=== PATIENT | female | born 1950 | race African-American/Black ===

== ENCOUNTER 2017-09-12 21:20 | Observation (INO) ==
[2017-09-12] MEDS ORDERED: 0.9 % Sodium Chloride 1,000 ML IVC ONE (21:37)
[2017-09-12] MEDS ORDERED: Ondansetron 4 MG/2 ML VIAL IVP ONE (21:37)
[2017-09-12] MEDS ORDERED: *HR* FentaNYL (PF) 100 MCG/2 ML VIAL IVP ONE (22:23)
--- NOTE | 2017-09-12 22:26 | Emergency Department Note ---
Disposition Clinical Impression: Diverticulitis Disposition: Admitted As Inpatient Condition: Fair Abdominal Pain HPI - General Chief Complaint: ED Abdominal Pain Stated Complaint: abdominal pain, n/v Time Seen by Provider: 09/12/17 21:36 Source: patient Mode of arrival: ambulatory Limitations: no limitations Nursing Notes Reviewed: Yes Vital Signs Reviewed: Yes - History of Present Illness HPI Narrative: 67-year-old female presents for evaluation of abdominal pain. Patient had left lower quadrant abdominal pain that started today. Denies any radiation of symptoms. No history of this in the past. Patient reports some nausea no vomiting. Patient had fever and chills. Patient denies any diarrhea or constipation. Patient denies any urinary symptoms. A shunt has had her gallbladder removed. Patient did not take any pain medication prior to ED arrival. Pain Scale: 9 - Related Data Home Medications Medication Instructions Recorded Confirmed Aspirin [Lo-Dose Aspirin EC] 81 mg PO DAILY 09/12/17 09/13/17 Gabapentin [Neurontin] 300 mg PO HS 09/12/17 09/13/17 Metformin HCl [Glucophage] 1,000 mg PO BID 09/12/17 09/12/17 Pioglitazone [Actos] 30 mg PO 0800 09/12/17 09/13/17 Allergies Allergy/AdvReac Type Severity Reaction Status Date / Time codeine Allergy See Verified 09/12/17 21:30 Comments All systems ED: reviewed and negative except as stated. Constitutional: Reports: fever, chills Cardiovascular: Denies: chest pain Respiratory: Denies: cough, dyspnea Gastrointestinal: Reports: abdominal pain, nausea. Denies: vomiting, diarrhea, constipation Abdominal Pain PMH - Past Medical History Medical history: Reports: diabetes Female Surgical History: Reports: cholecystectomy - Social History Smoking status: Never smoker Alcohol use: Reports: none Drug use: Reports: none Physical Exam - General Limitations: no limitations General appearance: alert, in no apparent distress - Head Head exam: atraumatic, normocephalic - Eye Eye exam: Present: normal appearance, PERRL, EOMI - ENT ENT exam: normal exam - Neck Neck exam: Present: normal inspection, trachea midline - Chest Chest inspection: Present: normal inspection, symmetric chest wall rise - Respiratory Respiratory exam: Present: prolonged expiratory phase, other (Diffusely diminished breath sounds throughout) - Cardiovascular Cardiovascular exam: Present: regular rate, normal rhythm. Absent: systolic murmur - Abdominal Exam Abdominal exam: Present: soft, tenderness (Tenderness to the left lower quadrant without rebound or guarding.) - Extremities Exam Extremities exam: Present: normal inspection. Absent: pedal edema - Back Exam Back exam: Present: normal inspection - Neurological Exam Neurological exam: Present: alert, oriented X3 Course Course Narrative: Patient had CT imaging of the pelvis, basic labs symptomatically with IV fluids antiemetics and pain control. Vital Signs Temperature 99.4 F 09/12/17 21:26 Pulse Rate 122 09/12/17 21:26 Respiratory Rate 26 09/12/17 21:26 Blood Pressure 194/93 09/12/17 21:26 O2 Sat by Pulse Oximetry 97 09/12/17 21:26 Temperature 98.8 F 09/13/17 04:08 Pulse Rate 97 09/13/17 04:08 Respiratory Rate 17 09/13/17 04:08 Blood Pressure 122/67 09/13/17 04:08 O2 Sat by Pulse Oximetry 97 09/13/17 04:08 Oxygen Delivery Oxygen Delivery Room Air Abdominal Pain - MDM Narrative Medical decision making narrative: Patient presented with abdominal pain consistent with diverticulitis. Patient did meet SIRS criteria and sepsis for her diverticulitis. Patient was given Cipro and Flagyl. Patient's repeat assessments showed that she was improving. Patient was a candidate for the patient therapy regarding her diverticulitis. Patient's repeat abdominal exam is unremarkable. - Medical Records Medical records reviewed: Yes I reviewed the patient's medical records. Abdomen/Pelvis CT 09/12/17 21:38 IMPRESSION: Diverticulitis of the distal descending colon. D/ / Michael Waterman MD / Michael Waterman MD Interpreting Provider: Michael Waterman MD - Lab Data Lab results reviewed: Yes I reviewed the patient's lab results. Result diagrams: 09/13/17 01:00 09/13/17 01:00 Lab Results 09/12/17 09/12/17 09/12/17 Range/Units 22:04 22:04 22:04 WBC 16.2 H (4.3-11.1) K/mcL RBC 3.32 L (3.82-4.97) M/mcL Hgb 8.6 L (11.5-15.4) g/dL Hct 27.4 L (35.3-44.9) % MCV 82.5 L (83.0-100.0) fL MCH 25.9 L (28.0-33.3) pg MCHC 31.4 L (31.6-35.5) g/dL RDW 16.3 H (11.5-14.5) % Plt Count 364 (140-400) K/mcL MPV 10.6 (9.4-12.4) fL Immature Gran % 0.6 (0-4) % Seg Neutrophils % 83.3 % Lymphocytes % 8.9 % Monocytes % 6.4 % Eosinophils % 0.6 % Basophils % 0.2 % Neutrophils # 13.5 H (1.6-8.9) K/mcL Lymphocytes # 1.5 (0.6-4.6) K/mcL Monocytes # 1.0 (0.0-1.3) K/mcL Eosinophils # 0.1 (0.0-0.6) K/mcL Basophils # 0.0 (0.0-0.2) K/mcL PT (9.4-12.1) Seconds INR Sodium 136 (136-145) mEq/L Potassium 4.3 (3.5-5.1) mEq/L Chloride 103 (98-107) mEq/L Carbon Dioxide 22 L (23-29) mEq/L BUN 14 (8-23) mg/dL Creatinine 0.88 (0.60-1.20) mg/dL Est GFR ( Amer) > 60 (> 60) Est GFR (Non-Af Amer) > 60 (> 60) BUN/Creatinine Ratio 16 (6-26) Glucose 128 H (70-105) mg/dL Calculated Osmolality 284 (280-300) Lactic Acid 2.3 H (0.5-2.2) mmol/L Calcium 9.2 (8.6-10.3) mg/dL Magnesium (1.6-2.6) mg/dL Iron (50-170) mcg/dL % Saturation (15-50) % Transferrin (203-362) mg/dL Ferritin (10-120) ng/mL Total Bilirubin 0.2 L (0.3-1.0) mg/dL Direct Bilirubin 0.1 (0.0-0.2) mg/dL Indirect Bilirubin 0.1 (0.0-1.2) mg/dL AST 10 L (13-39) Units/L ALT 7 (7-52) Units/L Alkaline Phosphatase 87 (34-104) Units/L Troponin I (< 0.04) ng/mL Serum Total Protein 7.4 (6.4-8.9) g/dL Albumin 3.8 (3.5-5.7) g/dL Globulin 3.6 H (2.4-3.5) g/dL Albumin/Globulin Ratio 1.1 (1.1-2.2) Lipase 14 (11-82) Units/L Vitamin B12 (250-1100) pg/mL Folate (3.0-16.0) ng/mL Urine Color (Yellow) Urine Clarity (Clear) Urine pH (5.0-8.0) pH Units Ur Specific [place] (1.010-1.025) Urine Protein (Neg-Trace) mg/dL Urine Glucose (UA) (Normal) mg/dL Urine Ketones (Negative) mg/dL Urine Blood (Negative) Urine Nitrite (Negative) Urine Bilirubin (Negative) Urine Urobilinogen (Normal) mg/dL Ur Leukocyte Esterase (Negative) Urine Microscopic RBC (0-3) per hpf Urine Microscopic WBC (0-3) per hpf Ur Squamous Epith Cells (None-Few) per lpf Urine Bacteria (None-Few) per hpf Hyaline Casts (None-Few) per lpf Ur Culture Indicated? (NO) 09/12/17 09/12/17 09/13/17 Range/Units 22:04 22:30 01:00 WBC (4.3-11.1) K/mcL RBC (3.82-4.97) M/mcL Hgb (11.5-15.4) g/dL Hct (35.3-44.9) % MCV (83.0-100.0) fL MCH (28.0-33.3) pg MCHC (31.6-35.5) g/dL RDW (11.5-14.5) % Plt Count (140-400) K/mcL MPV (9.4-12.4) fL Immature Gran % (0-4) % Seg Neutrophils % % Lymphocytes % % Monocytes % % Eosinophils % % Basophils % % Neutrophils # (1.6-8.9) K/mcL Lymphocytes # (0.6-4.6) K/mcL Monocytes # (0.0-1.3) K/mcL Eosinophils # (0.0-0.6) K/mcL Basophils # (0.0-0.2) K/mcL PT 11.6 (9.4-12.1) Seconds INR 1.1 Sodium (136-145) mEq/L Potassium (3.5-5.1) mEq/L Chloride (98-107) mEq/L Carbon Dioxide (23-29) mEq/L BUN (8-23) mg/dL Creatinine (0.60-1.20) mg/dL Est GFR ( Amer) (> 60) Est GFR (Non-Af Amer) (> 60) BUN/Creatinine Ratio (6-26) Glucose (70-105) mg/dL Calculated Osmolality (280-300) Lactic Acid (0.5-2.2) mmol/L Calcium (8.6-10.3) mg/dL Magnesium (1.6-2.6) mg/dL Iron (50-170) mcg/dL % Saturation (15-50) % Transferrin (203-362) mg/dL Ferritin (10-120) ng/mL Total Bilirubin (0.3-1.0) mg/dL Direct Bilirubin (0.0-0.2) mg/dL Indirect Bilirubin (0.0-1.2) mg/dL AST (13-39) Units/L ALT (7-52) Units/L Alkaline Phosphatase (34-104) Units/L Troponin I < 0.03 (< 0.04) ng/mL Serum Total Protein (6.4-8.9) g/dL Albumin (3.5-5.7) g/dL Globulin (2.4-3.5) g/dL Albumin/Globulin Ratio (1.1-2.2) Lipase (11-82) Units/L Vitamin B12 (250-1100) pg/mL Folate (3.0-16.0) ng/mL Urine Color Yellow (Yellow) Urine Clarity Clear (Clear) Urine pH 6.0 (5.0-8.0) pH Units Ur Specific [place] 1.012 (1.010-1.025) Urine Protein Negative (Neg-Trace) mg/dL Urine Glucose (UA) Normal (Normal) mg/dL Urine Ketones Negative (Negative) mg/dL Urine Blood Negative (Negative) Urine Nitrite Negative (Negative) Urine Bilirubin Negative (Negative) Urine Urobilinogen Normal (Normal) mg/dL Ur Leukocyte Esterase Trace H (Negative) Urine Microscopic RBC 0-3 (0-3) per hpf Urine Microscopic WBC 0-3 (0-3) per hpf Ur Squamous Epith Cells Few (None-Few) per lpf Urine Bacteria None Seen (None-Few) per hpf Hyaline Casts None Seen (None-Few) per lpf Ur Culture Indicated? YES A (NO) 09/13/17 09/13/17 09/13/17 Range/Units 01:00 01:00 01:00 WBC (4.3-11.1) K/mcL RBC (3.82-4.97) M/mcL Hgb (11.5-15.4) g/dL Hct (35.3-44.9) % MCV (83.0-100.0) fL MCH (28.0-33.3) pg MCHC (31.6-35.5) g/dL RDW (11.5-14.5) % Plt Count (140-400) K/mcL MPV (9.4-12.4) fL Immature Gran % (0-4) % Seg Neutrophils % % Lymphocytes % % Monocytes % % Eosinophils % % Basophils % % Neutrophils # (1.6-8.9) K/mcL Lymphocytes # (0.6-4.6) K/mcL Monocytes # (0.0-1.3) K/mcL Eosinophils # (0.0-0.6) K/mcL Basophils # (0.0-0.2) K/mcL PT (9.4-12.1) Seconds INR Sodium (136-145) mEq/L Potassium (3.5-5.1) mEq/L Chloride (98-107) mEq/L Carbon Dioxide (23-29) mEq/L BUN (8-23) mg/dL Creatinine (0.60-1.20) mg/dL Est GFR ( Amer) (> 60) Est GFR (Non-Af Amer) (> 60) BUN/Creatinine Ratio (6-26) Glucose (70-105) mg/dL Calculated Osmolality (280-300) Lactic Acid 1.5 (0.5-2.2) mmol/L Calcium (8.6-10.3) mg/dL Magnesium (1.6-2.6) mg/dL Iron 11 L (50-170) mcg/dL % Saturation 3 L (15-50) % Transferrin 295 (203-362) mg/dL Ferritin < 8 L (10-120) ng/mL Total Bilirubin (0.3-1.0) mg/dL Direct Bilirubin (0.0-0.2) mg/dL Indirect Bilirubin (0.0-1.2) mg/dL AST (13-39) Units/L ALT (7-52) Units/L Alkaline Phosphatase (34-104) Units/L Troponin I (< 0.04) ng/mL Serum Total Protein (6.4-8.9) g/dL Albumin (3.5-5.7) g/dL Globulin (2.4-3.5) g/dL Albumin/Globulin Ratio (1.1-2.2) Lipase (11-82) Units/L Vitamin B12 160 L (250-1100) pg/mL Folate 10.6 (3.0-16.0) ng/mL Urine Color (Yellow) Urine Clarity (Clear) Urine pH (5.0-8.0) pH Units Ur Specific [place] (1.010-1.025) Urine Protein (Neg-Trace) mg/dL Urine Glucose (UA) (Normal) mg/dL Urine Ketones (Negative) mg/dL Urine Blood (Negative) Urine Nitrite (Negative) Urine Bilirubin (Negative) Urine Urobilinogen (Normal) mg/dL Ur Leukocyte Esterase (Negative) Urine Microscopic RBC (0-3) per hpf Urine Microscopic WBC (0-3) per hpf Ur Squamous Epith Cells (None-Few) per lpf Urine Bacteria (None-Few) per hpf Hyaline Casts (None-Few) per lpf Ur Culture Indicated? (NO) 09/13/17 09/13/17 Range/Units 01:00 01:00 WBC 14.9 H (4.3-11.1) K/mcL RBC 3.16 L (3.82-4.97) M/mcL Hgb 7.9 L (11.5-15.4) g/dL Hct 26.0 L (35.3-44.9) % MCV 82.3 L (83.0-100.0) fL MCH 25.0 L (28.0-33.3) pg MCHC 30.4 L (31.6-35.5) g/dL RDW 16.4 H (11.5-14.5) % Plt Count 339 (140-400) K/mcL MPV 10.7 (9.4-12.4) fL Immature Gran % 0.4 (0-4) % Seg Neutrophils % 81.6 % Lymphocytes % 11.3 % Monocytes % 6.2 % Eosinophils % 0.3 % Basophils % 0.2 % Neutrophils # 12.2 H (1.6-8.9) K/mcL Lymphocytes # 1.7 (0.6-4.6) K/mcL Monocytes # 0.9 (0.0-1.3) K/mcL Eosinophils # 0.0 (0.0-0.6) K/mcL Basophils # 0.0 (0.0-0.2) K/mcL PT (9.4-12.1) Seconds INR Sodium 136 (136-145) mEq/L Potassium 4.3 (3.5-5.1) mEq/L Chloride 104 (98-107) mEq/L Carbon Dioxide 24 (23-29) mEq/L BUN 13 (8-23) mg/dL Creatinine 0.90 (0.60-1.20) mg/dL Est GFR ( Amer) > 60 (> 60) Est GFR (Non-Af Amer) > 60 (> 60) BUN/Creatinine Ratio 14 (6-26) Glucose 111 H (70-105) mg/dL Calculated Osmolality 283 (280-300) Lactic Acid (0.5-2.2) mmol/L Calcium 8.7 (8.6-10.3) mg/dL Magnesium 1.7 (1.6-2.6) mg/dL Iron (50-170) mcg/dL % Saturation (15-50) % Transferrin (203-362) mg/dL Ferritin (10-120) ng/mL Total Bilirubin (0.3-1.0) mg/dL Direct Bilirubin (0.0-0.2) mg/dL Indirect Bilirubin (0.0-1.2) mg/dL AST (13-39) Units/L ALT (7-52) Units/L Alkaline Phosphatase (34-104) Units/L Troponin I (< 0.04) ng/mL Serum Total Protein (6.4-8.9) g/dL Albumin (3.5-5.7) g/dL Globulin (2.4-3.5) g/dL Albumin/Globulin Ratio (1.1-2.2) Lipase (11-82) Units/L Vitamin B12 (250-1100) pg/mL Folate (3.0-16.0) ng/mL Urine Color (Yellow) Urine Clarity (Clear) Urine pH (5.0-8.0) pH Units Ur Specific [place] (1.010-1.025) Urine Protein (Neg-Trace) mg/dL Urine Glucose (UA) (Normal) mg/dL Urine Ketones (Negative) mg/dL Urine Blood (Negative) Urine Nitrite (Negative) Urine Bilirubin (Negative) Urine Urobilinogen (Normal) mg/dL Ur Leukocyte Esterase (Negative) Urine Microscopic RBC (0-3) per hpf Urine Microscopic WBC (0-3) per hpf Ur Squamous Epith Cells (None-Few) per lpf Urine Bacteria (None-Few) per hpf Hyaline Casts (None-Few) per lpf Ur Culture Indicated? (NO) S.B.A.R. - Efren.B.A.Abraham Situation: Demographics Background: Presenting Complaint Assessment: Vital Signs, Patient/Family Expectation Recommendation: Barrier(s) to disposition, Recommendation based on pending studies, treatments, or consults S.B.A.RCarter Report Given to: Dr. Chris MorganB.ARubina Repor Time: 23:30 Attestation Statement - Attestation Attestation: I examined this patient and my medical decision-making was reviewed with the Resident Physician. I agree with the documented findings, disposition and treatment plan as described except to the extent set forth below. Findings consistent with diverticulitis. Patient will be admitted for further management and started on IV antibiotics Cipro and Flagyl
[2017-09-12 22:28] LABS: Basophils % 0.2 %; Eosinophils # 0.1 K/mcL (0.0-0.6); Eosinophils % 0.6 %; Hematocrit 27.4 % (35.3-44.9); Hemoglobin 8.6 g/dL (11.5-15.4); Immature Granulocytes % 0.6 % (0-4); Lymphocytes # 1.5 K/mcL (0.6-4.6); Lymphocytes % 8.9 %; Mean Corpuscular HGB Conc 31.4 g/dL (31.6-35.5); Mean Corpuscular Hemoglobin 25.9 pg (28.0-33.3); Mean Corpuscular Volume 82.5 fL (83.0-100.0); Mean Platelet Volume 10.6 fL (9.4-12.4); Monocytes % 6.4 %; Neutrophils # 13.5 K/mcL (1.6-8.9); Platelet Count 364 K/mcL (140-400); Red Blood Count 3.32 M/mcL (3.82-4.97); Red Cell Distribution Width 16.3 % (11.5-14.5); Segmented Neutrophils % 83.3 %
[2017-09-12 22:54] LABS: Alanine Aminotransferase 7 Units/L (7-52); Albumin 3.8 g/dL (3.5-5.7); Albumin/Globulin Ratio 1.1 (1.1-2.2); Alkaline Phosphatase 87 Units/L (34-104); Aspartate Amino Transferase 10 Units/L (13-39); BUN/Creatinine Ratio 16 (6-26); Bilirubin,Direct 0.1 mg/dL (0.0-0.2); Bilirubin,Indirect 0.1 mg/dL (0.0-1.2); Bilirubin,Total 0.2 mg/dL (0.3-1.0); Blood Urea Nitrogen 14 mg/dL (8-23); Calcium 9.2 mg/dL (8.6-10.3); Carbon Dioxide 22 mEq/L (23-29); Chloride 103 mEq/L (98-107); Globulin 3.6 g/dL (2.4-3.5); Glucose 128 mg/dL (70-105); Lipase 14 Units/L (11-82); Osmolality,Calculated 284 (280-300); Potassium 4.3 mEq/L (3.5-5.1); Sodium 136 mEq/L (136-145); Total Protein 7.4 g/dL (6.4-8.9); eGFR For African Americans > 60 (> 60); eGFR For Non-African Americans > 60 (> 60)
[2017-09-12 22:55] LABS: Bilirubin,Urine Negative (Negative); Blood,Urine Negative (Negative); Clarity,Urine Clear (Clear); Color,Urine Yellow (Yellow); Glucose,Urine (UA) Normal (Normal); Ketones,Urine Negative (Negative); Leukocyte Esterase,Urine Trace (Negative); Nitrite,Urine Negative (Negative); Protein,Urine Negative (Neg-Trace); Specific Gravity,Urine 1.012 (1.010-1.025); Urobilinogen,Urine Normal (Normal)
[2017-09-12 22:58] LABS: Bacteria,Urine None Seen per hpf (None-Few); Hyaline Casts,Urine None Seen per lpf (None-Few); RBC,Urine 0-3 per hpf (0-3); Squamous Epithelial Cell,Urine Few per lpf (None-Few); WBC,Urine 0-3 per hpf (0-3)
[2017-09-12] MEDS ORDERED: MetroNIDAZOLE 500 MG/100 ML 500 MG/100 ML BAG IVPB ONE (23:01)
--- NOTE | 2017-09-12 23:48 | Internal Med History&Physical ---
Date of Encounter: 09/13/17 Time of Encounter: 23:47 Internal Medicine - H&P: HPI Chief complaint: Abdominal pain Admitted From: Emergency Dept Plans for Post Hospital Care: Home History of present illness: Ms. Mata is a 67 year old female with history of diabetes who presents with complaints of left-sided lower abdominal pain that started earlier today with associated nausea but no vomiting. She reports subjective chills. In the ED she was found to have acute diverticulitis with labs findings with leukocytosis and lactic acidosis. She also was noted to have hemoglobin of 8.6 but denies any bleeding, melena, hematochezia, hematemesis. She is given IV fluids as well as Cipro and Flagyl. She was also given fentanyl IV with her pain better controlled by the time I evaluated the patient. The patient reports having a colonoscopy many years ago with a was unremarkable. Denies any constipation or diarrhea. She denies any headache, blurry vision, chest pain, shortness breath , urinary symptoms, or neurological symptoms. In the ED the patient's blood pressure was elevated and she tells me that she used to be on blood pressure medications however she was taken off them about a year ago by her primary care physician. Past Med Surg Social Fam HX - Past Medical History Medical history: diabetes - Social History Smoking Status: Never smoker Alcohol use: none Drug use: none Internal Medicine - H&P: Meds Aspirin [Lo-Dose Aspirin EC] 81 mg PO DAILY 09/12/17 [History] Gabapentin [Neurontin] 300 mg PO HS 09/12/17 [History] Metformin HCl [Glucophage] 1,000 mg PO BID 09/12/17 [History] Pioglitazone [Actos] 30 mg PO 0800 09/12/17 [History] 3 Allergy/AdvReac Type Severity Reaction Status Date / Time codeine Allergy See Verified 09/12/17 21:30 Comments All Systems PM: A 10-system review of systems was performed and is negative for pertinent findings except as documented above in the HPI. Review of systems: All systems reviewed are negative except for as mentioned above - Constitutional Vitals: Temp Pulse Resp BP Pulse Ox 99.4 F 109 20 184/97 93 09/12/17 21:26 09/12/17 23:12 09/12/17 22:19 09/12/17 23:12 06/11/18 22:19 Exam: GEN: NAD HEENT: AT, NC, No cyanosis, oral mucosa is moist, No JVD Lymphatics: No lymphadenoapthy Eyes: Extrocular muscles intact, anicteric CVS:RRR. S1, S2, No m/r/g RESP: CTAB ABD: Soft, left lower quadrant tenderness with no rebound, ND, +BS EXT: No edema, No rashes, 2+ DP NEURO: Nonfocal, CN II-XII intact, No focal motor or sensory deficits Psych: Cooperative, Not anxious or depressed Internal Med - H&P Results - Labs CBC & Chem 7: 09/12/17 22:04 09/12/17 22:04 Labs: Short CBC 09/12/17 Range/Units 22:04 WBC 16.2 H (4.3-11.1) K/mcL Hgb 8.6 L (11.5-15.4) g/dL Hct 27.4 L (35.3-44.9) % Plt Count 364 (140-400) K/mcL Neutrophils # 13.5 H (1.6-8.9) K/mcL BMP 09/12/17 22:04 Sodium 136 Potassium 4.3 Chloride 103 Carbon Dioxide 22 L BUN 14 Creatinine 0.88 Glucose 128 H Calcium 9.2 Cardiac Enzymes 09/12/17 Range/Units 22:04 Troponin I < 0.03 (< 0.04) ng/mL Liver Function 09/12/17 Range/Units 22:04 Total Bilirubin 0.2 L (0.3-1.0) mg/dL Direct Bilirubin 0.1 (0.0-0.2) mg/dL AST 10 L (13-39) Units/L ALT 7 (7-52) Units/L Alkaline Phosphatase 87 (34-104) Units/L Albumin 3.8 (3.5-5.7) g/dL Urine 09/12/17 Range/Units 22:30 Urine Color Yellow (Yellow) Urine Clarity Clear (Clear) Urine pH 6.0 (5.0-8.0) pH Units Ur Specific [place] 1.012 (1.010-1.025) Urine Protein Negative (Neg-Trace) mg/dL Urine Glucose (UA) Normal (Normal) mg/dL - Impressions ITS Impressions Abdomen/Pelvis CT 09/12/17 21:38 IMPRESSION: Diverticulitis of the distal descending colon. D/ / Michael Waterman MD / Michael Waterman MD Interpreting Provider: Michael Waterman MD - Assessment and plan (1) Acute diverticulitis Current Visit: Yes Status: Acute Assessment and plan: Admit the patient to hospitalist. Conservative management. IV fluids, pain control, and antiemetics. We will place patient on Cipro and Flagyl. Nothing by mouth. Advanced diet as tolerated. (2) Elevated blood pressure reading Current Visit: Yes Status: Acute Assessment and plan: Likely secondary to pain. We will try to have better pain control. We will add hydralazine IV when necessary. Patient used to be on blood pressure medications however she was taken for them about a year ago. I have not started on any antihypertensives as I believe this is all secondary to pain as mentioned. (3) Lactic acidosis Current Visit: Yes Status: Acute Assessment and plan: Patient is G5 a fluids in the ED. We will repeat lactic acid. We will continue IV fluids. (4) Anemia Current Visit: Yes Status: Acute Assessment and plan: No signs of bleeding. We will check iron studies for now. Patient will eventually need a colonoscopy in 4-6 weeks after acute diverticulitis resolves. Qualifiers: Anemia type: unspecified type Qualified Code(s): D64.9 - Anemia, unspecified (5) Diabetes mellitus Current Visit: Yes Status: Acute Assessment and plan: We will place the patient on insulin sliding scale. Accu-Cheks. Qualifiers: Diabetes mellitus type: type 2 Diabetes mellitus custodial insulin use: without termite renewal inspector use Diabetes mellitus complication status: without complication Qualified Code(s): E11.9 - Type 2 diabetes mellitus without complications (6) DVT prophylaxis Current Visit: Yes Status: Acute Assessment and plan: Heparin subcutaneous. - Time Spent With Patient Total time spent is greater than 50% in coordination of care (as documented) at patient's floor/unit and/or counseling patient:
[2017-09-12] MEDS ORDERED: Acetaminophen 325 MG TABLET PO PRN (23:50)
[2017-09-12] MEDS ORDERED: Naloxone 0.4 MG/ML INJ IVP PRN (23:50)
[2017-09-13] MEDS ORDERED: Dextrose Gel 15 GM/37.5 ML TUBE PO PRN ×2 (00:32)
[2017-09-13] MEDS ORDERED: *HR* Dextrose 50 % in Water (Syg) 50 ML SYRINGE IVP PRN (00:32)
[2017-09-13] MEDS ORDERED: D5% in Water 1,000 ML IVC PRN (00:32)
[2017-09-13 01:22] LABS: Basophils % 0.2 %; Eosinophils % 0.3 %; Hemoglobin 7.9 g/dL (11.5-15.4); Immature Granulocytes % 0.4 % (0-4); Lymphocytes # 1.7 K/mcL (0.6-4.6); Lymphocytes % 11.3 %; Mean Corpuscular HGB Conc 30.4 g/dL (31.6-35.5); Mean Corpuscular Volume 82.3 fL (83.0-100.0); Mean Platelet Volume 10.7 fL (9.4-12.4); Monocytes # 0.9 K/mcL (0.0-1.3); Monocytes % 6.2 %; Neutrophils # 12.2 K/mcL (1.6-8.9); Platelet Count 339 K/mcL (140-400); Red Blood Count 3.16 M/mcL (3.82-4.97); Red Cell Distribution Width 16.4 % (11.5-14.5); Segmented Neutrophils % 81.6 %
[2017-09-13] MEDS: *HR* Heparin 5,000 UNIT/ML VIAL SQ SCH ×4 (01:29→23:56)
[2017-09-13 01:30] LABS: INR 1.1; Prothrombin Time 11.6 Seconds (9.4-12.1)
[2017-09-13 01:44] LABS: BUN/Creatinine Ratio 14 (6-26); Blood Urea Nitrogen 13 mg/dL (8-23); Calcium 8.7 mg/dL (8.6-10.3); Carbon Dioxide 24 mEq/L (23-29); Chloride 104 mEq/L (98-107); Glucose 111 mg/dL (70-105); Magnesium 1.7 mg/dL (1.6-2.6); Osmolality,Calculated 283 (280-300); Potassium 4.3 mEq/L (3.5-5.1); Sodium 136 mEq/L (136-145); eGFR For African Americans > 60 (> 60); eGFR For Non-African Americans > 60 (> 60)
[2017-09-13 01:45] LABS: % Iron Saturation 3 % (15-50); Iron 11 mcg/dL (50-170); Transferrin 295 mg/dL (203-362)
[2017-09-13 01:53] LABS: Ferritin < 8 ng/mL (10-120)
[2017-09-13 01:56] LABS: Folate 10.6 ng/mL (3.0-16.0)
[2017-09-13] MEDS ORDERED: MetroNIDAZOLE 500 MG/100 ML 500 MG/100 ML BAG IVPB ONE (02:00)
[2017-09-13] MEDS: *HR* HYDROcodone/Acet 5/325 mg TABLET PO PRN ×3 (02:32→18:18)
[2017-09-13] MEDS: 0.9 % Sodium Chloride 1,000 ML IVC SCH ×2 (02:33→18:18)
[2017-09-13] MEDS: Insulin LISPRO 300 UNITS/3 ML VIAL SQ SCH ×3 (05:58→18:19)
[2017-09-13] MEDS: Ondansetron 4 MG/2 ML VIAL IVP PRN ×3 (06:01→18:18)
[2017-09-13 06:37] LABS: Estimated Average Glucose 120 mg/dl; Hemoglobin A1C 5.8 %
[2017-09-13] MEDS: Aspirin Enteric Coated 81 MG Tablet PO SCH (08:49)
[2017-09-13] MEDS: MetroNIDAZOLE 500 MG/100 ML 500 MG/100 ML BAG IVPB SCH ×2 (08:49→18:17)
[2017-09-13] MEDS ORDERED: SODIUM FERRIC GLUCONAT IVPB ONE (08:59)
[2017-09-13] MEDS ORDERED: SODIUM CHLORIDE 0.9% IVPB ONE (08:59)
[2017-09-13] MEDS ORDERED: SUCROSE IVPB ONE (08:59)
[2017-09-13] MEDS ORDERED: Sodium Ferric Gluconat/Sucrose 250 MG in 0.9 % Sodium Chloride 100 ML IVPB SCH (09:00)
[2017-09-13] MEDS: Sodium Ferric Gluconat/Sucrose 125 MG in 0.9 % Sodium Chloride 100 ML IVPB SCH (11:08)
--- NOTE | 2017-09-13 13:44 | Internal Med Progress Note ---
Date of Encounter: 09/13/17 Time of Encounter: 08:30 - Assessment and plan (1) Acute diverticulitis Current Visit: Yes Status: Acute Assessment and plan: Acute diverticulitis of the descending colon. No perforation or abscess. Continue IV antibiotics. Supportive care. Keep nothing by mouth. Pain control. IV fluids. Moderate risk for complications. (2) Elevated blood pressure reading Current Visit: Yes Status: Acute Assessment and plan: Blood pressure has improved. We will continue to monitor. Continue hydralazine as needed. (3) Lactic acidosis Current Visit: Yes Status: Resolved Assessment and plan: Due to acute diverticulitis (4) DVT prophylaxis Current Visit: Yes Status: Acute Assessment and plan: continue subcutaneous heparin (5) Anemia Current Visit: Yes Status: Acute Assessment and plan: Patient with severe iron deficiency. We will place her on IV iron infusions for now. She will need upper GI endoscopy and colonoscopy as outpatient. Qualifiers: Anemia type: iron deficiency Iron deficiency anemia type: unspecified iron deficiency Qualified Code(s): D50.9 - Iron deficiency anemia, unspecified (6) Diabetes mellitus Current Visit: Yes Status: Chronic Assessment and plan: Controlled. Continue to monitor blood sugars. Continue sliding scale coverage. Qualifiers: Diabetes mellitus type: type 2 Diabetes mellitus prison insulin use: without termite technician use Diabetes mellitus complication status: without complication Qualified Code(s): E11.9 - Type 2 diabetes mellitus without complications - Time Spent With Patient Total time spent is greater than 50% in coordination of care (as documented) at patient's floor/unit and/or counseling patient: - Subjective Interval history: Patient is awake and alert. Continues to have pain in left lower quadrant tolerate is slowly improving. Denies any fevers or chills. Is currently nothing by mouth. Denies any hematemesis or melena. No hematochezia. - Constitutional Vitals: Temp Pulse Resp BP Pulse Ox 97.9 F 79 16 149/84 95 09/13/17 10:41 09/13/17 10:41 09/13/17 10:41 09/13/17 10:41 09/13/17 10:41 General appearance: Present: cooperative, mild distress, A&O X 3, answers questions appropriately - Respiratory Respiratory exam: Present: CTAB. Absent: accessory muscle use, rales, rhonchi, wheezes - Cardiovascular Cardiovascular exam: Present: RRR, +S1, +S2. Absent: diastolic murmur, gallop, rubs, systolic murmur - GI/Abdominal GI/Abdominal exam: Present: normal bowel sounds, soft, tenderness (Left lower quadrant), no peritoneal signs. Absent: distended - Extremities Exam Extremities exam: Present: warm, radial pulses palpable and symmetrical. Absent : calf tenderness, cyanotic, pedal edema - Neurological Exam Neurological exam: Present: CN II-XII intact, oriented X3, no focal deficits, strengths equal and symetr throughout. Absent: facial droop, speech deficit - Skin Skin exam: Present: dry, intact Internal Medicine: Result - Labs CBC & Chem 7: 09/13/17 01:00 09/13/17 01:00 - ABG Interpretation ABG results: PT/INR, D-dimer PT 11.6 Seconds (9.4-12.1) 09/13/17 01:00 - VTE Documentation of Mechanical Device: Intermittent pneumatic compression device Consult Discharge Plan - Plan Referrals: Reji Garcia DO [Primary Care Provider] -
[2017-09-13] MEDS: Gabapentin 300 MG CAPSULE PO SCH (21:04)
[2017-09-14] MEDS: Insulin LISPRO 300 UNITS/3 ML VIAL SQ SCH ×4 (00:04→16:33)
[2017-09-14] MEDS: Ondansetron 4 MG/2 ML VIAL IVP PRN (00:15)
[2017-09-14] MEDS: *HR* HYDROcodone/Acet 5/325 mg TABLET PO PRN (00:16)
[2017-09-14] MEDS: MetroNIDAZOLE 500 MG/100 ML 500 MG/100 ML BAG IVPB SCH ×3 (01:44→17:58)
[2017-09-14] MEDS: 0.9 % Sodium Chloride 1,000 ML IVC SCH ×4 (01:49→23:42)
[2017-09-14] MEDS ORDERED: *HR* Promethazine 25 MG/ML VIAL ONE (02:33)
[2017-09-14] MEDS ORDERED: *HR* Promethazine 25 MG/ML VIAL IVP PRN (03:03)
[2017-09-14 05:30] LABS: Basophils % 0.4 %; Eosinophils # 0.1 K/mcL (0.0-0.6); Eosinophils % 0.7 %; Hematocrit 26.2 % (35.3-44.9); Hemoglobin 7.9 g/dL (11.5-15.4); Immature Granulocytes % 0.4 % (0-4); Lymphocytes # 1.4 K/mcL (0.6-4.6); Lymphocytes % 13.2 %; Mean Corpuscular HGB Conc 30.2 g/dL (31.6-35.5); Mean Corpuscular Hemoglobin 25.2 pg (28.0-33.3); Mean Corpuscular Volume 83.4 fL (83.0-100.0); Mean Platelet Volume 10.7 fL (9.4-12.4); Monocytes # 0.7 K/mcL (0.0-1.3); Monocytes % 6.9 %; Neutrophils # 8.1 K/mcL (1.6-8.9); Platelet Count 338 K/mcL (140-400); Red Blood Count 3.14 M/mcL (3.82-4.97); Red Cell Distribution Width 16.8 % (11.5-14.5); Segmented Neutrophils % 78.4 %
[2017-09-14 05:32] LABS: BUN/Creatinine Ratio 10 (6-26); Blood Urea Nitrogen 9 mg/dL (8-23); Carbon Dioxide 26 mEq/L (23-29); Chloride 105 mEq/L (98-107); Glucose 95 mg/dL (70-105); Osmolality,Calculated 286 (280-300); Sodium 139 mEq/L (136-145); eGFR For African Americans > 60 (> 60); eGFR For Non-African Americans > 60 (> 60)
[2017-09-14] MEDS: Aspirin Enteric Coated 81 MG Tablet PO SCH (08:40)
[2017-09-14] MEDS: *HR* Heparin 5,000 UNIT/ML VIAL SQ SCH ×3 (08:40→23:43)
--- NOTE | 2017-09-14 13:38 | Internal Med Progress Note ---
Date of Encounter: 09/14/17 Time of Encounter: 09:00 - Assessment and plan (1) Acute diverticulitis Current Visit: Yes Status: Acute Assessment and plan: Pain is improving. Will start patient on a clear liquid diet. Continue current antibiotics. Leukocytosis is improving. If patient is able to tolerate diet and pain continues to improve, she may be able to go home tomorrow. (2) Lactic acidosis Current Visit: Yes Status: Resolved (3) Anemia Current Visit: Yes Status: Acute Assessment and plan: Hemoglobin levels are stable. Patient receiving IV iron. Qualifiers: Anemia type: iron deficiency Iron deficiency anemia type: unspecified iron deficiency Qualified Code(s): D50.9 - Iron deficiency anemia, unspecified (4) Diabetes mellitus Current Visit: Yes Status: Chronic Assessment and plan: Well-controlled. 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 Will start patient on chlorthalidone for hypertension. (6) DVT prophylaxis Current Visit: Yes Status: Acute Assessment and plan: With subcutaneous heparin - Time Spent With Patient Total time spent is greater than 50% in coordination of care (as documented) at patient's floor/unit and/or counseling patient: - Subjective Interval history: Patient is feeling better today. Pain in her abdomen is improving. No nausea or vomiting. No diarrhea. No emesis or melena. Her blood pressure has been elevated. She denies any chest pain or palpitations. - Constitutional Vitals: Temp Pulse Resp BP Pulse Ox 98.0 F 89 18 166/82 96 09/14/17 10:35 09/14/17 10:35 09/14/17 10:35 09/14/17 10:35 09/14/17 10:35 General appearance: Present: cooperative, mild distress, A&O X 3, answers questions appropriately - Neck Neck exam general surgery: Present: supple, trachea midline. Absent: lymphadenopathy - Respiratory Respiratory exam: Present: CTAB. Absent: accessory muscle use, rales, rhonchi, wheezes - Cardiovascular Cardiovascular exam: Present: RRR, +S1, +S2. Absent: diastolic murmur, gallop, rubs, systolic murmur - GI/Abdominal GI/Abdominal exam: Present: normal bowel sounds, soft, tenderness (Left lower quadrant), no peritoneal signs. Absent: distended - Extremities Exam Extremities exam: Present: warm, radial pulses palpable and symmetrical. Absent : calf tenderness, cyanotic, pedal edema - Neurological Exam Neurological exam: Present: CN II-XII intact, oriented X3, no focal deficits. Absent: facial droop, speech deficit - Skin Skin exam: Present: dry, intact Internal Medicine: Result - Labs CBC & Chem 7: 09/14/17 04:49 09/14/17 04:49 Labs: Short CBC 09/14/17 Range/Units 04:49 WBC 10.3 (4.3-11.1) K/mcL Hgb 7.9 L (11.5-15.4) g/dL Hct 26.2 L (35.3-44.9) % Plt Count 338 (140-400) K/mcL Neutrophils # 8.1 (1.6-8.9) K/mcL BMP 09/14/17 04:49 Sodium 139 Potassium 4.0 Chloride 105 Carbon Dioxide 26 BUN 9 Creatinine 0.86 Glucose 95 Calcium 9.0 - ABG Interpretation ABG results: PT/INR, D-dimer PT 11.6 Seconds (9.4-12.1) 09/13/17 01:00 - VTE Documentation of Mechanical Device: Intermittent pneumatic compression device Consult Discharge Plan - Plan Referrals: Reji Garcia DO [Primary Care Provider] -
[2017-09-14] MEDS: Sodium Ferric Gluconat/Sucrose 125 MG in 0.9 % Sodium Chloride 100 ML IVPB SCH (15:15)
[2017-09-14] MEDS ORDERED: D5% in Water 1,000 ML IVC PRN (17:28)
[2017-09-14] MEDS ORDERED: *HR* Dextrose 50 % in Water (Syg) 50 ML SYRINGE IVP PRN (17:28)
[2017-09-14] MEDS ORDERED: Dextrose Gel 15 GM/37.5 ML TUBE PO PRN ×2 (17:28)
[2017-09-14] MEDS ORDERED: Insulin LISPRO 300 UNITS/3 ML VIAL SQ SCH (21:00)
[2017-09-14] MEDS: Gabapentin 300 MG CAPSULE PO SCH (21:01)
[2017-09-15] MEDS: MetroNIDAZOLE 500 MG/100 ML 500 MG/100 ML BAG IVPB SCH ×2 (03:07→10:37)
[2017-09-15 06:23] LABS: Basophils % 0.4 %; Eosinophils # 0.2 K/mcL (0.0-0.6); Eosinophils % 1.9 %; Hematocrit 25.9 % (35.3-44.9); Immature Granulocytes % 0.5 % (0-4); Lymphocytes % 24.8 %; Mean Corpuscular HGB Conc 30.9 g/dL (31.6-35.5); Mean Corpuscular Hemoglobin 25.7 pg (28.0-33.3); Mean Corpuscular Volume 83.3 fL (83.0-100.0); Mean Platelet Volume 10.1 fL (9.4-12.4); Monocytes # 0.8 K/mcL (0.0-1.3); Monocytes % 9.6 %; Neutrophils # 5.1 K/mcL (1.6-8.9); Platelet Count 342 K/mcL (140-400); Red Blood Count 3.11 M/mcL (3.82-4.97); Red Cell Distribution Width 16.8 % (11.5-14.5); Segmented Neutrophils % 62.8 %
[2017-09-15 06:42] LABS: BUN/Creatinine Ratio 8 (6-26); Blood Urea Nitrogen 7 mg/dL (8-23); Calcium 8.7 mg/dL (8.6-10.3); Carbon Dioxide 29 mEq/L (23-29); Chloride 105 mEq/L (98-107); Glucose 95 mg/dL (70-105); Osmolality,Calculated 288 (280-300); Potassium 3.6 mEq/L (3.5-5.1); Sodium 140 mEq/L (136-145); eGFR For African Americans > 60 (> 60); eGFR For Non-African Americans > 60 (> 60)
[2017-09-15] MEDS: Insulin LISPRO 300 UNITS/3 ML VIAL SQ SCH ×2 (07:43→12:16)
--- NOTE | 2017-09-15 08:37 | Discharge Summary ---
- NOTES TO OUTPATIENT PROVIDER Notes to Outpatient Provider: Patient admitted with acute descending colon diverticulitis. Patient was kept nothing by mouth and treated with IV antibiotics with improvement in her symptoms. Pain has resolved. Tolerating clear liquid diet well. Stable to be discharged home at this time. She does have anemia with iron deficiency. Received IV iron infusions. Started on iron supplements. Will need colonoscopy as outpatient in 3-4 weeks. Will be discharged on oral antibiotics to complete treatment for diverticulitis. Also diagnosed with essential hypertension and has been placed on chlorthalidone. 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 Mata is a 67 year old female patient with history of diabetes admitted with acute descending colon diverticulitis. Patient was kept nothing by mouth and treated with IV antibiotics with improvement in her symptoms. Her pain has resolved. Is liquid diet well. Stable to be discharged home at this time. She does have anemia with iron deficiency. Received IV iron infusions. Started on iron supplements. Will need colonoscopy as outpatient in 3-4 weeks. Will be discharged on oral antibiotics to complete treatment for diverticulitis. Also diagnosed with essential hypertension and has been placed on chlorthalidone. Discharge discussed with: patient - Time Spent with Patient Total time spent providing and/or coordinating discharge services: Greater than 30 minutes (35 min) - Discharge Medications Prescriptions: HYDROcodone/Acet 5/325 mg [[place] 5-325 mg] 1 tab PO Q6HR PRN 3 Days #10 tablet PRN Reason: Moderate Pain Chlorthalidone 25 mg PO DAILY #30 tablet Ciprofloxacin [Cipro] 500 mg PO BID #10 tablet Ferrous Sulfate 325 mg PO TID #90 tablet metroNIDAZOLE [Flagyl] 500 mg PO TID #15 tablet Home Medications: Aspirin [Lo-Dose Aspirin EC] 81 mg PO DAILY 09/12/17 [History] Gabapentin [Neurontin] 300 mg PO HS 09/12/17 [History] Metformin HCl [Glucophage] 1,000 mg PO BID 09/12/17 [History] Pioglitazone [Actos] 30 mg PO 0800 09/12/17 [History] Chlorthalidone 25 mg PO DAILY #30 tablet 09/15/17 [Rx] Ciprofloxacin [Cipro] 500 mg PO BID #10 tablet 09/15/17 [Rx] Ferrous Sulfate 325 mg PO TID #90 tablet 09/15/17 [Rx] HYDROcodone/Acet 5/325 mg [[place] 5-325 mg] 1 tab PO Q6HR PRN 3 Days #10 tablet 09/15/17 [Rx] metroNIDAZOLE [Flagyl] 500 mg PO TID #15 tablet 09/15/17 [Rx] Allergies/Adverse Reactions: 3 Allergy/AdvReac Type Severity Reaction Status Date / Time codeine Allergy See Verified 09/12/17 21:30 Comments Date of admission: 09/13/17 01:45 Primary care physician: Reji Garcia, Discharging clinician: Daniella High Anticipated date of discharge: 09/15/17 - Constitutional Vitals: Temp Pulse Resp BP Pulse Ox 98.1 F 83 16 167/81 96 09/15/17 07:30 09/15/17 07:30 09/15/17 07:30 09/15/17 07:30 09/15/17 07:30 General appearance: Present: cooperative, A&O X 3, no acute distress, answers questions appropriately - Respiratory Respiratory exam: Present: CTAB. Absent: accessory muscle use, rales, rhonchi, wheezes - Cardiovascular Cardiovascular exam: Present: RRR, +S1, +S2. Absent: diastolic murmur, gallop, rubs, systolic murmur - GI/Abdominal GI/Abdominal exam: Present: normal bowel sounds, soft, no peritoneal signs. Absent: distended, tenderness - Extremities Exam Extremities exam: Present: warm, radial pulses palpable and symmetrical. Absent : calf tenderness, cyanotic, pedal edema - Patient Status Disposition: Home, Self-Care Condition: Fair Functional capacity at discharge: independent ambulation Overall status at discharge: patient is progressing back to baseline - Discharge Instructions Instructions: Diverticulitis (DC), Diabetes Mellitus Type 2 in Adults (DC), Chronic Hypertension (DC), Anemia (GEN) Follow Up With: Reji Garcia DO [Primary Care Provider] - 09/22/17 9:30 am - Diet and Activity Activity: increase activity as tolerated Diet: diabetic diet, low fat, low cholesterol, low salt diet - VTE Documentation of Mechanical Device: Intermittent pneumatic compression device
[2017-09-15] MEDS: Aspirin Enteric Coated 81 MG Tablet PO SCH (10:35)
[2017-09-15] MEDS: *HR* Heparin 5,000 UNIT/ML VIAL SQ SCH (10:35)
[2017-09-15 11:46] VITALS: BP 159/81
[2017-09-15] MEDS: Sodium Ferric Gluconat/Sucrose 125 MG in 0.9 % Sodium Chloride 100 ML IVPB SCH (12:16)
== END 2017-09-15 13:46 | disposition home or self-care (01) ==
LOC: EMEROO 21:20 → 3ANU 21:20 → SUATTDRO 09-13 01:45
PROVIDERS: ADMIT Internal Medicine; ATTEND Internal Medicine